=== PATIENT | female | born 1935 | race Caucasian/White ===

== ENCOUNTER 2018-06-03 14:18 | Inpatient (IN) ==
[2018-06-03] MEDS ORDERED: Atenolol 100 MG Tablet PO ONE (18:42)
--- NOTE | 2018-06-03 18:44 | XR ---
EXAM DATE: 06/03/2018 6:35 PM EST AGE/SEX: 83 years / Female INDICATIONS: Cough and congestion. CLINICAL DATA: This is the patient's initial encounter. Patient reports that signs and symptoms have been present for 2 days and indicates a pain score of 4/10. MEDICAL/SURGICAL HISTORY: . Atrial fibrillation, hypertension None. COMPARISON: No prior exams available for comparison. FINDINGS: A single AP view of the chest demonstrates minimal dependent and basilar opacity most characteristic of atelectasis. No pneumothorax. No significant effusion. Tortuous aorta. CONCLUSION: Minimal basilar and probable dependent density that is likely atelectasis. No dense consolidation or significant effusion. Electronically signed by: Storm Kahn MD Board Certified Radiologist 06/03/2018 6:42 PM EST
[2018-06-03 18:58] LABS: Baso % (Auto) 0.2 % (0.0-2.0); Eos # (Auto) 0.1 th/mm3 (0.0-0.4); Eos % (Auto) 0.6 % (0.0-4.0); Hematocrit 44.8 % (35.0-46.0); Hemoglobin 15.1 gm/dL (11.6-15.3); Lymph # (Auto) 0.6 th/mm3 (1.0-4.8); Lymph % (Auto) 5.2 % (9.0-44.0); Mean Corpuscular HGB Conc 33.7 % (32.0-36.0); Mean Corpuscular Hemoglobin 31.9 pg (27.0-34.0); Mean Corpuscular Volume 94.6 fL (80.0-100.0); Mean Platelet Volume 8.9 fL (7.0-11.0); Mono # (Auto) 0.9 th/mm3 (0.0-0.9); Mono % (Auto) 8.2 % (0.0-8.0); Neut # (Auto) 9.8 th/mm3 (1.8-7.7); Neut % (Auto) 85.8 % (16.0-70.0); Platelet Count 191 th/mm3 (150-450); Red Blood Count 4.73 mil/mm3 (4.00-5.30); Red Cell Distribution Width 13.9 % (11.6-17.2); White Blood Count 11.5 th/mm3 (4.0-11.0)
--- NOTE | 2018-06-03 18:59 | ED ---
HPI General Chief Complaint: Respiratory Symptoms Stated Complaint: Medical Time Seen by Provider: 06/03/18 17:50 History of Present Illness HPI Narrative: 83 year old female who presents to the ED for an evaluation of her 3 day history of sore throat, cough and congestion. Patient states that she is in no pain at this time. She has a history of hypertension, a-fib on Coumadin, lymphedema. She recently travelled here by bus from [place]. She denies any pulmonary history or leg pain. She is unsure whether she was around anyone with similar symptoms. She denies fevers. She went to an urgent care today and based on her vital signs (elevated BP and tachycardia) sent her here. She says she did not take her blood pressure medication today. She was also noted to be hypoxic on the O2 with a saturation in the 90s and 80s. She denies using any oxygen. She has a history of COPD or asthma. She denies hypoxia in the past. She denies ever being told that her oral oxygen saturation is low. She denies any chest pain was does have a little cough which is productive. She states that she did get her flu shot as well as her pneumonia shots. Related Data Home Medications Medication Instructions Recorded Confirmed atenolol 100 mg PO DAILY 06/03/18 06/03/18 warfarin [Coumadin] 5 mg PO DAILY 06/03/18 06/03/18 Allergies Allergy/AdvReac Type Severity Reaction Status Date / Time No Known Allergies Allergy Verified 06/03/18 17:57 Review of Systems ROS: all other systems reviewed are negative [facility] Medical History Medical History Afib (Acute) Hypertension (Acute) Loose left total knee arthroplasty (Acute) Loose right total knee arthroplasty (Acute) Social History Social History Substance History: No History of Abuse Second Hand Smoke Exposure: No Smoking Status: Never smoker How Often Do You Have a Drink Containing Alcohol: Never Recent Travel in [facility] within the Last 8 Weeks: Yes Recent Out of Country Travel within the Last 8 Weeks: No Immunization History Tetanus Immunization: >5 Years Exam Narrative Exam Narrative: GENERAL: Well-appearing in no distress. SKIN: Focused skin assessment warm/dry. HEAD: Atraumatic. Normocephalic. EYES: Pupils equal and round. No scleral icterus. No injection or drainage. ENT: No nasal bleeding or discharge. Mucous membranes pink and moist. TMs are clear with no sign of infection or perforation. Tongue is midline. No uvula deviation. NECK: Trachea midline. No JVD. CARDIOVASCULAR: Regular rate and rhythm. No murmur appreciated. RESPIRATORY: No accessory muscle use. Clear to auscultation. Breath sounds equal bilaterally. GASTROINTESTINAL: Abdomen soft, non-tender, nondistended. Hepatic and splenic margins not palpable. MUSCULOSKELETAL: No obvious deformities. No clubbing. No cyanosis. No edema. Full range of motion of the upper and lower extremities bilaterally. 2+ pulses bilaterally. NEUROLOGICAL: Awake and alert. No obvious cranial nerve deficits. Motor grossly within normal limits. Normal speech. PSYCHIATRIC: Appropriate mood and affect; insight and judgment normal. Course Initial Documented Vital Signs Temperature 99.7 F H 06/03/18 14:22 Pulse Rate 111 H 06/03/18 14:22 Respiratory Rate 17 06/03/18 14:22 Blood Pressure 203/101 H 06/03/18 14:22 Pulse Oximetry 92 L 06/03/18 14:22 Last Documented Vital Signs Temperature 99.7 F H 06/03/18 14:22 Pulse Rate 95 H 06/03/18 21:39 Respiratory Rate 20 06/03/18 21:39 Blood Pressure 169/91 H 06/03/18 21:39 Pulse Oximetry 86 L 06/03/18 22:15 Medical Decision Making MDM Narrative Medical decision making narrative: 83-year-old female who presents to the ED for evaluation of cold-like symptoms. Patient was properly examined and was found to have signs and symptoms consistent with appears to be pneumonia versus PE versus influenza. Labs and imaging were ordered. Patient was hypoxic when I was in the room. She was satting on the low 90s and high 80s without oxygen. She was put on oxygen now she is satting 96. She denies ever being told that her oxygenation was low. Did not appear to be in any distress although she does appear to be a little tachypneic. She has also been coughing in the room but not significantly enough to cause service admission to [facility]. She was also tachycardic initially and she did not took her atenolol today. She was given atenolol 100 mg today. Labs and imaging were done. Labs and imaging showed positive d-dimer. CTA was ordered. CTA did not show PE but did show what appears to be possible pneumonia. Patient was started on ceftriaxone and azithromycin. Walking test was done and patient desatted to 86. Case discussed with my attending who recommends admission for further evaluation. Case discussed with Dr. Medley who agrees admission to his service. Medical Screen Exam Complete: Yes Emergency Medical Condition: Yes Differential Diagnosis Differential Diagnosis: Pneumonia versus PE versus influenza versus hypoxia Medical Records Medical records reviewed: Yes I reviewed the patient's medical records. Lab Data Lab results reviewed: Yes I reviewed the patient's lab results. Result diagrams: 06/03/18 18:05 06/03/18 18:05 Lab Results 06/03/18 06/03/18 06/03/18 Range/Units 18:05 18:05 18:05 WBC 11.5 H (4.0-11.0) th/mm3 RBC 4.73 (4.00-5.30) mil/mm3 Hgb 15.1 (11.6-15.3) gm/dL Hct 44.8 (35.0-46.0) % MCV 94.6 (80.0-100.0) fL MCH 31.9 (27.0-34.0) pg MCHC 33.7 (32.0-36.0) % RDW 13.9 (11.6-17.2) % Plt Count 191 (150-450) th/mm3 MPV 8.9 (7.0-11.0) fL Neut % (Auto) 85.8 H (16.0-70.0) % Lymph % (Auto) 5.2 L (9.0-44.0) % Slope % (Auto) 8.2 H (0.0-8.0) % Eos % (Auto) 0.6 (0.0-4.0) % Baso % (Auto) 0.2 (0.0-2.0) % Neut # (Auto) 9.8 H (1.8-7.7) th/mm3 Lymph # (Auto) 0.6 L (1.0-4.8) th/mm3 Slope # (Auto) 0.9 (0.0-0.9) th/mm3 Eos # (Auto) 0.1 (0.0-0.4) th/mm3 Baso # (Auto) 0.0 (0.0-0.2) th/mm3 WBC Differential . Differential Comment Auto diff final PT 18.4 H (9.8-11.6) sec INR 1.8 Ratio D-Dimer Quant (PE/DVT) 0.63 H (0.00-0.50) mg/L FEU Sodium 139 (136-145) meq/L Potassium 3.6 (3.5-5.1) meq/L Chloride 105 (98-107) meq/L Carbon Dioxide 27.9 (21.0-32.0) meq/L Anion Gap 6 (5-15) meq/L BUN 15 (7-18) mg/dL Creatinine 0.99 (0.50-1.00) mg/dL Estimated GFR 53 L (>89) mL/min Random Glucose 107 H (74-106) mg/dL Calcium 9.6 (8.5-10.1) mg/dL Total Bilirubin 2.0 H (0.2-1.0) mg/dL AST 23 (15-37) U/L ALT 17 (10-53) U/L Alkaline Phosphatase 132 H (45-117) U/L Troponin I Less than 0.02 L (0.02-0.05) ng/mL Total Protein 8.5 H (6.4-8.2) g/dL Albumin 3.8 (3.4-5.0) g/dL Imaging Data Attestation: I personally reviewed and interpreted this imaging study as follows : Radiologist's impression: Chest X-Ray 06/03/18 17:58 CONCLUSION: Minimal basilar and probable dependent density that is likely atelectasis. No dense consolidation or significant effusion. Chest CTA 06/03/18 20:01 CONCLUSION: 1. This study is negative for pulmonary embolism. 2. Bibasilar patchiness (right slightly worse than left) consistent with possible pneumonia. Clinical correlation is recommended. 3. Tiny right pleural effusion. 4. Cardiomegaly. 5. Degenerative changes and scoliosis of the thoracic spine. Discharge Plan Discharge Disposition Patient Disposition: ED Admit(ED Internal Use Only) Discharge Order Discharge Orders: ED Use Only Admit Order (Routine); Ordered 06/03/18 Ordered By: Reynaldo Bates Discharge Details Diagnosis: Pneumonia, Hypoxia Physicians Team ED Provider: Marixa Delgado ED Midlevel Provider: Reynaldo Bates Primary Care Provider: Primary Care Octavia Hogan Attending Provider: Erick Medley Discharge Interventions Interventions: Vital Signs Last Done: 06/03/18 22:15 Status ED Status: Admitted Observation Patient
[2018-06-03 19:12] LABS: Albumin 3.8 g/dL (3.4-5.0); Anion Gap 6 meq/L (5-15); Aspartate Aminotransferase 23 U/L (15-37); Blood Urea Nitrogen 15 mg/dL (7-18); Calcium 9.6 mg/dL (8.5-10.1); Carbon Dioxide 27.9 meq/L (21.0-32.0); Chloride 105 meq/L (98-107); Glomerular Filtration Rate 53 mL/min (>89); Glucose,Random 107 mg/dL (74-106); Potassium 3.6 meq/L (3.5-5.1); Sodium 139 meq/L (136-145)
[2018-06-03 19:13] LABS: Alanine Aminotransferase 17 U/L (10-53)
[2018-06-03 19:17] LABS: Alkaline Phosphatase 132 U/L (45-117); Total Protein 8.5 g/dL (6.4-8.2)
[2018-06-03 19:35] LABS: INR 1.8 Ratio; Prothrombin Time 18.4 sec (9.8-11.6)
[2018-06-03 20:00] LABS: D-Dimer 0.63 mg/L FEU (0.00-0.50)
--- NOTE | 2018-06-03 21:36 | CT ---
EXAM DATE: 06/03/2018 9:27 PM EST AGE/SEX: 83 years / Female INDICATIONS: Elevated blood pressure and tachycardia; rule out pulmonary embolus. CLINICAL DATA: This is the patient's initial encounter. Patient reports that signs and symptoms have been present for 1 day and indicates a pain score of 0/10. MEDICAL/SURGICAL HISTORY: Hypertension. None. RADIATION DOSE: 10.59 CTDI (mGy) COMPARISON: No prior exams available for comparison. TECHNIQUE: Volumetric scanning was performed using a multi-row detector CT scanner during bolus infu mary of 59 ml Omnipaque 350 (iohexol) nonionic water-soluble contrast as a single exam dose. The melissa a was post processed with a variety of visualization algorithms including full volume maximum intensi ty projection and sliding thin slab reformation. Using automated exposure control and adjustment of t he mA and/or kV according to patient size, radiation dose was kept as low as reasonably achievable to obtain optimal diagnostic quality images. DICOM format image data is available electronically for r eview and comparison. FINDINGS: Pulmonary Arteries: No filling defects are seen in the pulmonary arteries out to the subsegmental ve ssels. The left and right pulmonary arteries are normal in diameter. Lung: Focal patchy opacity is noted within the right lung base and to a less extent left lung base c onsistent with possible pneumonia. Clinical correlation is recommended. Effusion: Tiny right pleural effusion is noted. Mediastinum: Cardiomegaly is noted. Other: The axilla is unremarkable. Degenerative changes and scoliosis of the thoracic spine are note d. CONCLUSION: 1. This study is negative for pulmonary embolism. 2. Bibasilar patchiness (right slightly worse than left) consistent with possible pneumonia. Clinica l correlation is recommended. 3. Tiny right pleural effusion. 4. Cardiomegaly. 5. Degenerative changes and scoliosis of the thoracic spine. Electronically signed by: Servando Pennington MD Board Certified Radiologist 06/03/2018 9:35 PM EST
[2018-06-03] MEDS ORDERED: Warfarin Consult Pharmacy OTHER PRN (22:27)
[2018-06-03] MEDS ORDERED: Azithromycin Inj 500 MG in Sodium Chlor 0.9% Inj 250 ML IV.SIG ONE (22:27)
[2018-06-03] MEDS ORDERED: Bisacodyl 10 MG Supp RECTAL PRN (22:30)
[2018-06-03] MEDS ORDERED: Acetaminophen 325 MG Tablet PO PRN (22:30)
[2018-06-03] MEDS: predniSONE 20 MG Tablet PO SCH (22:58)
[2018-06-04 06:30] LABS: Baso % (Auto) 0.2 % (0.0-2.0); Hematocrit 40.1 % (35.0-46.0); Hemoglobin 13.6 gm/dL (11.6-15.3); Lymph # (Auto) 0.2 th/mm3 (1.0-4.8); Lymph % (Auto) 3.6 % (9.0-44.0); Mean Corpuscular HGB Conc 33.9 % (32.0-36.0); Mean Corpuscular Hemoglobin 32.5 pg (27.0-34.0); Mean Corpuscular Volume 95.9 fL (80.0-100.0); Mean Platelet Volume 8.6 fL (7.0-11.0); Mono # (Auto) 0.3 th/mm3 (0.0-0.9); Mono % (Auto) 4.4 % (0.0-8.0); Neut # (Auto) 6.2 th/mm3 (1.8-7.7); Neut % (Auto) 91.8 % (16.0-70.0); Platelet Count 146 th/mm3 (150-450); Red Blood Count 4.18 mil/mm3 (4.00-5.30); Red Cell Distribution Width 13.8 % (11.6-17.2); White Blood Count 6.7 th/mm3 (4.0-11.0)
[2018-06-04 06:59] LABS: Albumin 3.3 g/dL (3.4-5.0); Anion Gap 5 meq/L (5-15); Aspartate Aminotransferase 21 U/L (15-37); Blood Urea Nitrogen 14 mg/dL (7-18); Calcium 9.1 mg/dL (8.5-10.1); Carbon Dioxide 27.5 meq/L (21.0-32.0); Chloride 108 meq/L (98-107); Glomerular Filtration Rate 60 mL/min (>89); Glucose,Random 133 mg/dL (74-106); Potassium 3.9 meq/L (3.5-5.1); Sodium 140 meq/L (136-145)
[2018-06-04 07:00] LABS: Alanine Aminotransferase 15 U/L (10-53)
[2018-06-04 07:02] LABS: Alkaline Phosphatase 108 U/L (45-117); Total Protein 7.4 g/dL (6.4-8.2)
[2018-06-04] MEDS: predniSONE 20 MG Tablet PO SCH (08:41)
[2018-06-04] MEDS: Azithromycin 250 MG Tablet PO SCH (08:41)
[2018-06-04] MEDS ORDERED: Atenolol 100 MG Tablet PO SCH (09:00)
[2018-06-04] MEDS: Atenolol 50 MG Tablet PO SCH (10:23)
[2018-06-04] MEDS ORDERED: Lisinopril 5 MG Tablet PO SCH (12:45)
--- NOTE | 2018-06-04 13:14 | P.HPIM ---
History of Present Illness Primary Care Physician: No Primary Care Physician History of Present Illness: 83 y/o white female admitted for acute hypoxic respiratory failure. Patient was in her USOH until 2 days ago when she developed a sore throat congestion and coughing. She has had refractory coughing for the next 2 days, went to an urgent care, and was referred to the ER for elevated blood pressure and tachycardia. In the ED she was noted to be saturating in the 80s on room air. Chest x-ray was unremarkable, CT of the chest was performed which I independently reviewed which showed mild bibasilar infiltrates suggestive of pneumonia, negative for PE per radiology. Flu swab was negative. blood work Unremarkable. Patient was given Rocephin and azithromycin and Solu-Medrol. Patient denies any chest pain, chau shortness of breath, nausea, vomiting. Reports having chronic lower extremity edema secondary to lymphedema. Inpatient Certification Inpatient Certification: I certify that the inpatient services were ordered in accordance with Medicare regulations governing the order. This includes certification that hospital inpatient services are reasonable and necessary and in the case of services not specified as inpatient-only under 42 CFR 419.22(n), that they are appropriately provided as inpatient services in accordance to with the 2-midnight benchmark under 43 CFR 412.3(e) Estimated Total Length of Stay (Days): 3 Plans for Post Hospital Care: Home Review of Systems Review of Systems: all other systems reviewed are negative [facility] Medical History Medical History Afib (Acute) Hypertension (Acute) Loose left total knee arthroplasty (Acute) Loose right total knee arthroplasty (Acute) Social History Social History Substance History: No History of Abuse Second Hand Smoke Exposure: No Smoking Status: Former smoker Years Smoked: 10 How Often Do You Have a Drink Containing Alcohol: Monthly or less Recent Travel in [place] within the Last 8 Weeks: No Recent Out of Country Travel within the Last 8 Weeks: No Immunization History Tetanus Immunization: Unsure Hx Influenza Vaccine This Season: Yes Medications and Allergies Allergies Allergy/AdvReac Type Severity Reaction Status Date / Time No Known Allergies Allergy Verified 06/03/18 17:57 Home Medications Medication Instructions Recorded Confirmed Type atenolol 100 mg PO DAILY 06/03/18 06/03/18 History warfarin [Coumadin] 5 mg PO DAILY 06/03/18 06/03/18 History atorvastatin [Lipitor] 10 mg PO DAILY 06/04/18 06/04/18 History Active Medications: Active Medications Acetaminophen (Tylenol) 650 mg PO Q4H PRN PRN Reason: Temp > 100.4 Acetylcysteine (Mucomyst 10% Neb) 2 ml NEB Q6HR NEB PRN PRN Reason: mucous plugging Al Hydroxide/Mg Hydroxide (Milk Of Magnesia Liq) 30 ml PO Q12H PRN PRN Reason: Mild Constipation Albuterol (Duoneb Neb ([facility])) 1 ampul NEB Q6HR WHILE AWAKE NEB [facility] Atenolol (Tenormin) 100 mg PO DAILY [facility] Last Admin: 06/04/18 10:23 Dose: 100 mg Azithromycin (Zithromax) 500 mg PO DAILY [facility] Last Admin: 06/04/18 08:41 Dose: 500 mg Bisacodyl (Dulcolax Supp) 10 mg RECTAL DAILY PRN PRN Reason: SEVERE CONSITIPATION Ceftriaxone Sodium 1,000 mg/ (Sodium Chloride) 100 mls @ 200 mls/hr IV.SIG Q24H [facility] Ipratropium [place] (Atrovent Neb) 0.5 mg NEB Q6HR NEB PRN PRN Reason: SHORTNESS OF BREATH Lactulose (Lactulose Liq) 30 ml PO DAILY PRN PRN Reason: SEVERE CONSITIPATION Lisinopril (Prinivil) 5 mg PO DAILY [facility] Ondansetron HCl (Zofran Inj) 4 mg IV.PUSH Q6H PRN PRN Reason: NAUSEA OR VOMITING Pharmacy Profile Note (Coumadin Consult Pharmacy) 1 each OTHER UNSCH PRN PRN Reason: PHARMACY DOCUMENTATION Prednisone (Deltasone) 40 mg PO DAILY [facility] Last Admin: 06/04/18 08:41 Dose: 40 mg Sennosides (Senokot) 17.2 mg PO Q12H PRN PRN Reason: Moderate Constipation Sodium Chloride (Ns Flush) 2 ml IV.FLUSH BID [facility] Last Admin: 06/04/18 08:41 Dose: 2 ml Sodium Chloride (Ns Flush) 2 ml IV.FLUSH PRN PRN PRN Reason: FLUSH AFTER USING IV ACCESS Warfarin Sodium (Coumadin) 5 mg PO DAILY@1600 [facility] Physical Exam Vital signs: Vital Signs 06/03/18 14:22 06/03/18 17:53 06/03/18 17:59 Temperature 99.7 F H Pulse Rate 111 H 113 H 113 H Respiratory Rate 17 22 Blood Pressure 203/101 H 219/114 H Pulse Oximetry 92 L 91 L 91 L 06/03/18 19:06 06/03/18 19:38 06/03/18 21:39 Temperature Pulse Rate 102 H 84 95 H Respiratory Rate 20 22 20 Blood Pressure 186/93 H 174/98 H 169/91 H Pulse Oximetry 95 98 96 06/03/18 22:15 06/04/18 01:02 06/04/18 05:09 Temperature Pulse Rate 97 H 106 H Respiratory Rate 18 21 Blood Pressure 150/79 H 140/99 H Pulse Oximetry 86 L 95 98 06/04/18 07:30 06/04/18 08:00 06/04/18 11:30 Temperature 96.6 F L 97.4 F L Pulse Rate 86 89 Respiratory Rate 20 20 Blood Pressure 140/85 154/101 H Pulse Oximetry 95 91 L 93 L Intake & Output 06/03/18 06/04/18 06/04/18 18:59 06:59 18:59 Intake Total 350 / 350 Balance 350 / 350 Weight 90.718 kg 90.718 kg Intake: IV 350 / 350 Azithromycin Inj 500 MG In NS 250 / 250 Inj 250 ML @ 250 mls/hr IV.SIG ONCE ONE Rx#:[id number] Rocephin Inj 1,000 MG In NS Inj 100 / 100 100 ML @ 200 mls/hr IV.SIG ONCE ONE Rx#:[id number] Other: Date of Last Bowel Movement 06/03/18 Weight On Admission 90.718 kg Narrative: VS: afebrile GENERAL: Well-nourished elderly white female, distress secondary to coughing spell SKIN: Warm and dry. EYES: No scleral icterus. No injection or drainage. ENT: No nasal bleeding or discharge. Mucous membranes pink and dry CARDIOVASCULAR: Regular rate and rhythm. no murmurs RESPIRATORY: No accessory muscle use. Junky breath sounds bilaterally, greater on the right than the left GASTROINTESTINAL: Abdomen soft, non-tender, nondistended. Extremities: No clubbing, cyanosis, or edema. No obvious deformities. MUSCULOSKELETAL: grossly intact ROM in upper and lower extremities proximally; adequate muscle bulk and tone for age and habitus NEUROLOGICAL: Awake and alert. No obvious cranial nerve deficits. No facial droop nor slurred speech noted. PSYCHIATRIC: Appropriate mood and affect; insight and judgment normal. Results Labs CBC & Chem 7: 06/04/18 06:17 06/04/18 06:17 Imaging Impressions Chest X-Ray 06/03/18 17:58 CONCLUSION: Minimal basilar and probable dependent density that is likely atelectasis. No dense consolidation or significant effusion. Chest CTA 06/03/18 20:01 CONCLUSION: 1. This study is negative for pulmonary embolism. 2. Bibasilar patchiness (right slightly worse than left) consistent with possible pneumonia. Clinical correlation is recommended. 3. Tiny right pleural effusion. 4. Cardiomegaly. 5. Degenerative changes and scoliosis of the thoracic spine. Caprini VTE Risk Assessment Caprini VTE Risk Assessment: Moderate/High Risk (score >= 2) Caprini Risk Assessment Model: Point Value = 1 Point Value = 2 Point Value = 3 Point Value = 5 Age 41-60 Minor surgery BMI > 25 kg/m2 Swollen legs Varicose veins or History of unexplained or recurrent spontaneous Oral contraceptives or hormone replacement Sepsis (< 1 month) Serious lung disease, including pneumonia (< 1 month) Abnormal pulmonary function Acute myocardial infarction Congestive heart failure (< 1 month) History of inflammatory bowel disease Medical patient at bed rest Age 61-74 Arthroscopic surgery Major open surgery (> 45 min) Laparoscopic surgery (> 45 min) Malignancy Confined to bed (> 72 hours) Immobilizing plaster cast Central venous access Age >= 75 History of VTE Family history of VTE Factor V Leiden Prothrombin [id number] Lupus anticoagulant Anticardiolipin antibodies Elevated serum homocysteine Heparin-induced thrombocytopenia Other congenital or acquired thrombophilia Stroke (< 1 month) Elective arthroplasty Hip, pelvis, or leg fracture Acute spinal cord injury (< 1 month) Prophylaxis Regimen: Total Risk Factor Score Risk Level Prophylaxis Regimen 0-1 Low Early ambulation 2 Moderate Order ONE of the following: *Sequential Compression Device (SCD) *Heparin 5000 units SQ BID 3-4 Higher Order ONE of the following medications: *Heparin 5000 units SQ TID *Enoxaparin/Lovenox 40 mg SQ daily (WT < 150 kg, CrCl > 30 mL/min) *Enoxaparin/Lovenox 30 mg SQ daily (WT < 150 kg, CrCl > 10-29 mL/min) *Enoxaparin/Lovenox 30 mg SQ BID (WT < 150 kg, CrCl > 30 mL/min) AND/OR *Sequential Compression Device (SCD) 5 or more Highest Order ONE of the following medications: *Heparin 5000 units SQ TID (Preferred with Epidurals) *Enoxaparin/Lovenox 40 mg SQ daily (WT < 150 kg, CrCl > 30 mL/min) *Enoxaparin/Lovenox 30 mg SQ daily (WT < 150 kg, CrCl > 10-29 mL/min) *Enoxaparin/Lovenox 30 mg SQ BID (WT < 150 kg, CrCl > 30 mL/min) AND *Sequential Compression Device (SCD) Assessment and Plan Plan 83-year-old white female admitted for acute hypoxic respiratory failure Acute hypoxic respiratory failure Likely secondary to pneumonia with mucous plugging, possible underlying COPD? -Treat as below Pneumonia Continue Rocephin and azithromycin Duo nebs with Mucomyst - hold off on steroids at this time A. fib Continue home warfarin and atenolol Hypertension uncontrolled Home atenolol, adding on lisinopril Warfarin H&P: Quality VTE Deep Vein Thrombosis/Pulmonary Embolism Present on Admission: No
[2018-06-05 07:17] LABS: INR 1.7 Ratio; Prothrombin Time 16.7 sec (9.8-11.6)
[2018-06-05] MEDS: Azithromycin 250 MG Tablet PO SCH (09:00)
[2018-06-05] MEDS: Atenolol 50 MG Tablet PO SCH (09:00)
--- NOTE | 2018-06-05 11:19 | P.PNIM ---
Subjective Interval history: Pt denies any deterioration since last night, says that she is now coughing up greenish sputum which was previously yellow. Says her breathing is better today, says she feels fine. Not short of breath. Ambulated to the restroom just fine. Physical Exam Vital signs: Vital Signs 06/04/18 11:30 06/04/18 12:00 06/04/18 14:18 Temperature 97.4 F L Pulse Rate 89 85 104 H Respiratory Rate 20 20 Blood Pressure 154/101 H Pulse Oximetry 93 L 06/04/18 15:13 06/04/18 16:00 06/04/18 20:00 Temperature 96.2 F L 96.6 F L Pulse Rate 83 107 H Respiratory Rate 20 18 Blood Pressure 160/100 H 157/79 H Pulse Oximetry 93 L 93 L 94 L 06/04/18 20:02 06/04/18 20:50 06/05/18 00:00 Temperature 97.4 F L Pulse Rate 84 108 H 74 Respiratory Rate 20 18 Blood Pressure 154/66 H Pulse Oximetry 95 96 06/05/18 00:06 06/05/18 03:26 06/05/18 04:02 Temperature 97.4 F L Pulse Rate 97 H 93 H 70 Respiratory Rate 18 Blood Pressure 154/66 H Pulse Oximetry 94 L 06/05/18 08:00 Temperature 96.9 F L Pulse Rate 87 Respiratory Rate 20 Blood Pressure 131/82 Pulse Oximetry 93 L Intake & Output 06/04/18 06/05/18 06/05/18 18:59 06:59 18:59 Intake Total 450 / 450 100 / 100 Output Total 1000 / 1000 Balance 450 / 450 -900 / -900 Weight 90.718 kg 90.6 kg Intake: IV 100 / 100 Rocephin Inj 1,000 MG In NS Inj 100 / 100 100 ML @ 200 mls/hr IV.SIG Q24H [facility] Rx#:[id number] Oral 450 / 450 Output: Urine 1000 / 1000 Other: # Voids 2 Date of Last Bowel Movement 06/03/18 06/04/18 # Bowel Movements 1 Weight On Admission 90.718 kg Narrative: Awake and alert, no acute distress junky Sounds bilaterally, no chau wheezing Unlabored breathing Heart sounds regular rate and rhythm No facial droop Results Labs CBC & Chem 7: 06/04/18 06:17 06/04/18 06:17 Assessment and Plan Plan 83-year-old white female admitted for acute hypoxic respiratory failure Acute hypoxic respiratory failure Likely secondary to pneumonia with mucous plugging, possible underlying COPD? -Treat as below, doing well on RA Pneumonia Continue Rocephin and azithromycin Duo nebs with Mucomyst - hold off on steroids at this time A. fib Continue home warfarin and atenolol Hypertension uncontrolled Home atenolol, losartan Warfarin Progress Note: Quality VTE Deep Vein Thrombosis/Pulmonary Embolism Present on Admission: No
[2018-06-06 06:39] LABS: INR 1.8 Ratio; Prothrombin Time 18.1 sec (9.8-11.6)
[2018-06-06] MEDS: Atenolol 50 MG Tablet PO SCH (08:38)
[2018-06-06 10:29] VITALS: PULSE 86; RESP 20; TEMP 98.2; O2SAT 95
[2018-06-06 10:30] VITALS: BP 140/82
--- NOTE | 2018-06-06 11:03 | P.DS ---
DS: Providers Date of admission: 06/03/18 22:30 Primary care physician: No Primary Care Physician Brief History from admission: 83 y/o white female admitted for acute hypoxic respiratory failure. Patient was in her USOH until 2 days ago when she developed a sore throat congestion and coughing. She has had refractory coughing for the next 2 days, went to an urgent care, and was referred to the ER for elevated blood pressure and tachycardia. In the ED she was noted to be saturating in the 80s on room air. Chest x-ray was unremarkable, CT of the chest was performed which I independently reviewed which showed mild bibasilar infiltrates suggestive of pneumonia, negative for PE per radiology. Flu swab was negative. blood work Unremarkable. Patient was given Rocephin and azithromycin and Solu-Medrol. Patient denies any chest pain, chau shortness of breath, nausea, vomiting. Reports having chronic lower extremity edema secondary to lymphedema. DS: Summary Patient was admitted, started on antibiotics, nebulizer treatments, and Mucomyst. Has substantial improvement in her symptoms with resolution of respiratory distress. Blood cultures were negative, remained afebrile. Patient was advised to follow-up with her PCP promptly and have her warfarin/ Coumadin levels checked within 3-5 days as the antibiotics will likely affect it , upon day of discharge her INR is 1.8. Patient has met maximal benefit from hospitalization is clinically stable for discharge. Time Spent with Patient Total time spent providing and/or coordinating discharge services: Greater than 30 minutes Quality: VTE Deep Vein Thrombosis/Pulmonary Embolism Present on Admission: No Exam Narrative Exam Narrative: Awake alert, no acute distress Clear lungs bilaterally, unlabored breathing Heart sounds regular rate and rhythm, no murmurs No facial droop, no slurred speech Moving all 4 extremities Appropriate mood demeanor and intact insight Results Labs on day of discharge: Labs from last 24 hours 06/06/18 04:57 PT 18.1 H INR 1.8 Impressions ITS Impressions Chest X-Ray 06/03/18 17:58 CONCLUSION: Minimal basilar and probable dependent density that is likely atelectasis. No dense consolidation or significant effusion. Chest CTA 06/03/18 20:01 CONCLUSION: 1. This study is negative for pulmonary embolism. 2. Bibasilar patchiness (right slightly worse than left) consistent with possible pneumonia. Clinical correlation is recommended. 3. Tiny right pleural effusion. 4. Cardiomegaly. 5. Degenerative changes and scoliosis of the thoracic spine. Discharge Plan Discharge Disposition Patient Disposition: 01 Discharge Home Discharge Order Discharge Orders: Discharge Order (Routine); Ordered 06/06/18 Ordered By: Travis Leach Physicians Team Primary Care Provider: Primary Octavia Marin Attending Provider: Travis Leach Rxs /Orders / Referrals /Forms Prescriptions: New losartan [Cozaar] 25 mg Tablet 25 mg PO DAILY Qty: 30 RF: 0 levofloxacin 750 mg tablet 750 mg PO DAILY 10 Days Qty: 10 RF: 0 Continue atenolol 100 mg Tablet 100 mg PO DAILY RF: 0 warfarin [Coumadin] 5 mg Tablet 5 mg PO DAILY RF: 0 atorvastatin [Lipitor] 10 mg Tablet 10 mg PO DAILY RF: 0 Referrals: Primary Care Octavia Hogan [Primary Care Provider] - See Instructions (PLEASE INSTRUCT PT TO CALL THEIR PCP WHEN THEY RETURN HOME IN [place]. FOR F/U [facility] ) Discharge Instructions Additional Instructions: Have your PCP check your warfarin/coumadin levels within 3-4 days. Status ED Status: Left Department Discharge Information Discharge Date/Time: 06/06/18 12:26
== END 2018-06-06 12:26 | disposition home or self-care (01) | DRG 193 ==
LOC: NEPD 14:18 → NEDA 22:30 → PH3 06-04 07:43
PROVIDERS: ADMIT Hospitalist; ATTEND Hospitalist
CPT/HCPCS: 71010; 71045; 71275; 80053; 84484; 85025; 85379; 85610; 87070; 87205; 87275; 87276; 87804; 90765; 94640; 94664; 94665; 94668; 96365; 99285; J0456; J0696; J1956; J7050; J7506; J7512; Q9967